=== PATIENT | female | born 1935 | race Caucasian/White ===

== ENCOUNTER 2020-09-16 17:46 | Emergency (ER) | payer MEDICARE, SELFPAY ==
[2020-09-16 17:48] VITALS: BP 139/57; PULSE 104; RESP 18; TEMP 37.2; O2SAT 96; BMI 27.6
--- NOTE | 2020-09-16 18:58 | EKG12_ITS ---
Test Reason : DYSRHYTHMIA Blood Pressure : / mmHG Vent. Rate : 096 BPM Atrial Rate : 096 BPM P-R Int : 130 ms QRS Dur : 082 ms QT Int : 356 ms P-R-T Axes : 044 -05 018 degrees QTc Int : 449 ms Normal sinus rhythm Nonspecific ST abnormality Abnormal ECG Confirmed by FRANCE ESTEVES, SUSHMA ([id number]), associate editor SPARKLE BRADLEY ([id number]) on 09/20/2020 1:22:48 PM Referred By: SHAHEED Confirmed By:SUSHMA HOUGH MD
--- NOTE | 2020-09-16 19:01 | EDS_ITS ---
HPI History of Present Illness Chief Complaint: General Illness Informant: patient Narrative Narrative: Patient is a 84-year-old female who presents to the emergency department for cough, body aches, fever and dysuria. She states that her initial symptoms started yesterday. No known sick contacts. She has not been vaccinated for Covid. She denies a history of urinary tract infections before. No hematuria. No significant abdominal pain or back pain. She denies any chest pain or shortness of breath. Her cough has been productive of sputum. She has not taken anything for her temperature. She states it was up to 103 yesterday and today. She has diffuse body aches and feels like she has the flu. [facility] Medical History (Updated 09/16/20 @ 21:[address] Rush Amezquita DO) Cataract Hypertension Seasonal affective disorder Home Medications amitriptyline 25 - 50 mg PO QHS 09/16/20 [History Last Taken Unknown] cephalexin 500 mg PO BID 10 Days #20 cap 09/16/20 [Rx Last Taken Unknown] fenofibrate 160 mg PO DAILY 09/16/20 [History Last Taken Unknown] losartan 50 mg PO DAILY 09/16/20 [History Last Taken Unknown] metoprolol tartrate 25 mg PO BID 09/16/20 [History Last Taken Unknown] pravastatin 20 mg PO DAILY 09/16/20 [History Last Taken Unknown] Allergy/AdvReac Type Severity Reaction Status Date / Time Sulfa (Sulfonamide Allergy Hives Verified 09/16/20 17:50 Antibiotics) Social History Smoking Status: Never smoker [facility] ED Constitutional Constitutional ED: Reports chills and fever(s) Eyes Eyes: Denies change in vision ENT ENT ED: Denies epistaxis or rhinorrhea Cardiovascular Cardiovascular: Denies chest pain or palpitations Respiratory/Chest Respiratory/Chest: Reports cough and sputum; Denies dyspnea or dyspnea on exertion Gastrointestinal Gastrointestinal: Denies abdominal pain, diarrhea, nausea or vomiting Genitourinary Genitourinary ED: Reports dysuria; Denies hematuria or urinary frequency Musculoskeletal Musculoskeletal: Reports myalgias; Denies back pain or neck pain Integumentary Denies rash Neurologic Neurologic: Denies dizziness, headache(s) or weakness EXAM Physical Exam Const Vital Signs: 09/16/20 17:48 09/16/20 18:11 09/16/20 19:21 Temperature 98.9 F Temperature Source Temporal Pulse Rate 104 H 97 Respiratory Rate 18 19 H Respiratory Effort Normal Respiratory Pattern Normal Blood Pressure 139/57 H 125/53 H Blood Pressure Mean 84 77 Pulse Ox 96 96 Oxygen Delivery Method Room Air Room Air 09/16/20 19:47 09/16/20 20:48 09/16/20 21:23 Temperature 98.8 F 98.0 F Temperature Source Temporal Temporal Pulse Rate 987 H 93 Respiratory Rate 15 16 Respiratory Effort Respiratory Pattern Blood Pressure 112/66 107/61 Blood Pressure Mean 81 76 Pulse Ox 94 92 Oxygen Delivery Method Room Air Room Air 09/16/20 21:41 Temperature 99.6 F H Temperature Source Temporal Pulse Rate Respiratory Rate Respiratory Effort Respiratory Pattern Blood Pressure Blood Pressure Mean Pulse Ox Oxygen Delivery Method Positive well nourished and well developed General Appearance ED: well developed and NAD HEENT Reports normocephalic, head/scalp atraumatic and moist mucous membranes Eyes PERRL and EOMs intact bilaterally Neck supple General: Negative for tenderness Chest Wall inspection of chest normal Resp normal respiratory effort and clear to auscultation bilaterally Auscultation: Negative for rales, rhonchi or wheezes Cardio regular rate, regular rhythm and no murmurs GI normal to inspection, nondistended, normoactive bowel sounds and non-tender Palpation: soft; Negative for guarding or rebound tenderness present Back/Spine no CVA tenderness Extremity normal to inspection General Extremety ED: Negative for edema or tenderness General Extremity: Negative for edema Neuro no sensory deficits noted Sensorium / Orientation: alert Motor Exam: strength 5/5 throughout Psych mental status grossly normal Skin no rashes or lesions noted MDM MDM MDM Narrative Medical decision making narrative: Patient presents to the emergency department for fever, body aches. She has had a cough that is productive of sputum as well as dysuria. On arrival to the ED she is afebrile but has a documented fever at home. On arrival to the ED she is borderline tachycardic. Otherwise normal vital signs. She is in no acute distress on physical exam. Her only complaint this time is body aches. We will give her a dose of Tylenol for this. Blood cultures, lactic acid and basic lab work being obtained. Will check chest x- ray, Covid swab as well as urinalysis. Patient's chest x-ray did not reveal any evidence of pneumonia. Her Covid swab was negative. She has mild hypokalemia and this will be replaced. Her urine does show evidence of infection and she is started on Rocephin. Her lactic acid within normal limits. Her white blood cell count is below 12. She has remained afebrile throughout ED stay. At this time I do feel she is stable for discharge. She is resting comfortably on repeat examination. She is given a prescription for Keflex. Return precautions are reviewed with her including any worsening symptoms, inability keep down the antibiotic. She otherwise is to follow-up with her PCP. She understands and is agreeable this plan. All questions were answered. Lab Data Labs: Laboratory Results - last 24 hr 09/16/20 09/16/20 09/16/20 18:55 18:55 18:55 WBC 11.9 H RBC 3.60 L Hgb 11.1 L Hct 33.7 L MCV 93.6 MCH 30.8 MCHC 32.9 RDW Std Deviation 47.8 H RDW Coeff of Radha 13.9 Plt Count 165 MPV 11.2 Immature Gran % (Auto) 0.800 Neut % (Auto) 86.5 H Lymph % (Auto) 5.1 L Putnam % (Auto) 7.2 Eos % (Auto) 0.1 Baso % (Auto) 0.3 Absolute Neuts (auto) 10.3 H Absolute Lymphs (auto) 0.60 L Nucleated RBC % 0 Differential Comment SCANNED Sodium 139 Potassium 3.1 L Chloride 105 Carbon Dioxide 26.0 Anion Gap 8 BUN 33 H Creatinine 1.30 H Estim Creat Clear Calc 26.44 Est GFR (MDRD) Af Amer 50 L Est GFR (MDRD) Non-Af 41 L BUN/Creatinine Ratio 25.4 H Glucose 178 H Lactic Acid 1.7 Calcium 8.7 Total Bilirubin 0.40 AST 23 ALT 31 Alkaline Phosphatase 53 Total Protein 6.7 Albumin 3.1 L Globulin 3.6 Albumin/Globulin Ratio 0.9 Urine Color Urine Clarity Urine pH Ur Specific [place] Urine Protein Urine Glucose (UA) Urine Ketones Urine Occult Blood Urine Nitrite Urine Bilirubin Urine Urobilinogen Ur Leukocyte Esterase Urine RBC Urine WBC Ur Squamous Epith Cells Urine Bacteria Urine Mucus 09/16/20 19:32 WBC RBC Hgb Hct MCV MCH MCHC RDW Std Deviation RDW Coeff of Radha Plt Count MPV Immature Gran % (Auto) Neut % (Auto) Lymph % (Auto) Putnam % (Auto) Eos % (Auto) Baso % (Auto) Absolute Neuts (auto) Absolute Lymphs (auto) Nucleated RBC % Differential Comment Sodium Potassium Chloride Carbon Dioxide Anion Gap BUN Creatinine Estim Creat Clear Calc Est GFR (MDRD) Af Amer Est GFR (MDRD) Non-Af BUN/Creatinine Ratio Glucose Lactic Acid Calcium Total Bilirubin AST ALT Alkaline Phosphatase Total Protein Albumin Globulin Albumin/Globulin Ratio Urine Color Yellow Urine Clarity Cloudy Urine pH 5.0 Ur Specific [place] 1.020 Urine Protein 100 H Urine Glucose (UA) Normal Urine Ketones Negative Urine Occult Blood 250 H Urine Nitrite Negative Urine Bilirubin Negative Urine Urobilinogen 1 H Ur Leukocyte Esterase 500 H Urine RBC 0 SEEN Urine WBC >100 SEEN Ur Squamous Epith Cells 0-5 SEEN Urine Bacteria 2+ Urine Mucus 0 SEEN Radiography Diagnostic Testing: Radiology Impression Chest X-Ray 09/16/20 19:35 IMPRESSION: Normal x-ray examination of the chest. Electronically Signed: Jose Vieira MD at 20:24 EDT Tel , Service support , Discharge Plan Triage Chief Complaint: General Illness ED Provider: Rush Amezquita Dx/Rx/DC Orders Clinical Impression: Acute UTI Instructions: Urinary Tract Infections in Women Prescriptions: New cephalexin 500 mg capsule 500 mg PO BID 10 Days Qty: 20 RF: 0 No Action losartan 50 mg Tablet 50 mg PO DAILY RF: 0 amitriptyline 25 mg Tablet 25 - 50 mg PO QHS RF: 0 pravastatin 20 mg Tablet 20 mg PO DAILY RF: 0 metoprolol tartrate 25 mg Tablet 25 mg PO BID RF: 0 fenofibrate 160 mg Tablet 160 mg PO DAILY RF: 0 Primary Care Provider: Sky Bowie Referrals: Sky Bowie MD [Primary Care Provider] - 2 Days Disposition Disposition: Home, Self Care Discharge Date/Time: 09/16/20 21:54
[2020-09-16 19:19] LABS: Absolute Neutrophil Count 10.3 X10^3/uL (2.0-7.7); Basophil# 0.03 X10^3/uL; Basophil% 0.3 % (0-1); Eosinophil# 0.01 X10^3/uL; Eosinophils% 0.1 % (0-5); Hematocrit 33.7 % (37-47); Hemoglobin 11.1 g/dL (12.0-15.0); Lymphocyte % 5.1 % (19-41); Mean Corp Hgb Conc 32.9 g/dL (32-36); Mean Corpuscular Hgb 30.8 pg (27.0-32.0); Mean Corpuscular Volume 93.6 fL (81-99); Mean Platelet Vol. 11.2 fl (6.2-12.0); Monocyte# 0.85 X10^3/uL; Monocyte% 7.2 % (0-10); NRBC Flagged by Analyzer 0 % (0-5); Neutrophil # 10.29 X10^3/uL (2.7-7.7); Neutrophil % 86.5 % (47-70); POSITIVE DIFFERENTIAL YES; Platelet Count 165 K/mm3 (150-450); RBC Distribution Width CV 13.9 % (11.6-14.6); RBC Distribution Width SD 47.8 fl (35.1-43.9); White Blood Count 11.9 K/mm3 (4.4-11.0)
[2020-09-16 19:21] VITALS: BP 125/53; PULSE 97; RESP 19; O2SAT 96
[2020-09-16 19:25] LABS: Differential Indicated SCAN CRITERIA MET
--- NOTE | 2020-09-16 19:35 | RAD_ITS ---
STUDY: X-RAY CHEST REASON FOR EXAM: Female, 84 years old. Cough, fever body aches nausea since Thursday TECHNIQUE: Frontal portable view of the chest COMPARISON: None. FINDINGS: The lungs are clear and expanded. There is no demonstrated pleural abnormality. Normal size heart. Normal mediastinum and rui. Normal visualized pulmonary arteries. Normal visualized aortic arch and descending thoracic aorta. Normal visualized thoracic spine. Normal visualized ribs, clavicles, and shoulders. There is no demonstrated abnormality of the visualized soft tissue structures of the upper abdomen. RAD/Chest 1 View (Portable) IMPRESSION: Normal x-ray examination of the chest. Electronically Signed: Jose Vieira MD at 20:24 EDT Tel , Service support ,
[2020-09-16 19:41] LABS: Mucous, Urine 0 SEEN /hpf (<or=2+); Red Blood Cells-Urine 0 SEEN /hpf (0-5)
[2020-09-16 19:44] LABS: ALB/GLOB Ratio 0.9 RATIO (0.9-2.4); AST(SGOT) 23 U/L (15-37); Alanine Aminotransfer ALT/SGPT 31 U/L (13-56); Albumin, Serum 3.1 g/dL (3.2-5.0); Alkaline Phosphatase 53 U/L (45-117); Anion Gap 8 (5-15); BUN 33 mg/dL (7-18); BUN/Creat Ratio 25.4 RATIO (10-20); Calcium,Total 8.7 mg/dL (8.5-10.1); Chloride 105 mmol/L (98-107); EST Glomerular Filtration Rate 41 mL/min (>60); Est Glom Filt Rate - Afr Amer 50 mL/min (>60); Estimated Creatinine Clearance 26.44 ml/min; Globulin 3.6 g/dL (2.2-4.2); Glucose 178 mg/dL (74-106); Potassium 3.1 mmol/L (3.5-5.1); Protein, Total 6.7 g/dL (6.4-8.2); Sodium Level 139 mmol/L (136-145)
[2020-09-16 19:45] LABS: Color, Urine Yellow (Yellow); Glucose, Dipstick Normal (Normal); Ketone-Dipstick Negative (Negative); Leukocyte Esterase-Dipstick 500 /ul (Negative); Nitrite-Dipstick Negative (Negative); Occult Blood-Urine 250 /ul (Negative); Protein-Dipstick 100 mg/dl (Negative); Urine Bilirubin Dipstick Negative (Negative); Urine Clarity Cloudy (Clear); Urine Urobilinogen 1 mg/dl (Normal)
[2020-09-16 19:46] LABS: Lactic Acid 1.7 mmol/L (0.4-1.9)
[2020-09-16 19:47] VITALS: TEMP 37.1
[2020-09-16 19:47] LABS: Bacteria 2+ /hpf (None Seen); Squamous Epithelial Cells - UA 0-5 SEEN /hpf (5-10); White Blood Cells >100 SEEN /hpf (0-5)
[2020-09-16] MEDS: Acetaminophen 325 MG Tablet 650 MG PO (19:47)
[2020-09-16 20:48] VITALS: BP 112/66; PULSE 987; RESP 15; TEMP 36.7; O2SAT 94
[2020-09-16] MEDS: Ceftriaxone 1 GM/50 ML BAG IV (20:50)
[2020-09-16 20:53] LABS: Differential Comment SCANNED
[2020-09-16] MEDS: Potassium Chloride Oral Tablet 20 MEQ 40 MEQ PO (21:22)
[2020-09-16 21:23] VITALS: BP 107/61; PULSE 93; RESP 16; O2SAT 92
[2020-09-16 21:41] VITALS: TEMP 37.6
--- NOTE | 2020-09-17 09:28 | ED.RN ---
CALLED TO CHECK ON PT. LEFT A MESSAGE ON REQUESTING PT TO CALL BACK
== END 2020-09-16 21:54 | disposition home or self-care (01) ==
PROVIDERS: Emergency Provider Emergency Medicine; PCP Family Medicine
DX: N39.0 Urinary tract infection, site not specified (principal); I10 Essential (primary) hypertension; Z79.899 Other long term (current) drug therapy
CPT/HCPCS: 71045; 80053; 81001; 83605; 85025; 87040; 87077; 87086; 87088; 87186; 87426; 93005; 96365; 99284; J7050; A4216